=== PATIENT | female | born 1995 | race Caucasian/White ===

== ENCOUNTER 2020-09-02 20:49 | Emergency (ER) | payer MEDICAID ==
[~2020-09-02] VITALS: Ht 160 cm; Wt 52.3 kg
[~2020-09-02 20:49] MED LIST: EPIN0.3P17 IM; PRED10TA PO
[2020-09-02 22:10] VITALS: BP 111/72
== END 2020-09-02 22:13 | disposition home or self-care (01) ==
LOC: ER 20:50
DX: S90.31XA Contusion of right foot, initial encounter (principal); Z88.1 Allergy status to other antibiotic agents; Z91.013 Allergy to seafood; Z79.899 Other long term (current) drug therapy; W22.8XXA Striking against or struck by other objects, initial encounter; Y93.89 Activity, other specified; Y92.89 Other specified places as the place of occurrence of the external cause; Y99.8 Other external cause status
CPT/HCPCS: 73630; 99283